=== PATIENT | male | born 1990 | race Caucasian/White ===

== ENCOUNTER 2017-07-12 02:16 | Emergency (ER) | payer OTHER ==
--- NOTE | 2017-07-12 02:39 | EDPHY ---
H & P Stated Complaint: right testicular pain Time Seen by Provider: 07/12/17 02:28 HPI/ROS: HPI The patient presents with intermittent right-sided testicular pain which started about 10 days ago and is getting progressively worse. When he tried to go to bed tonight the pain was 2/10, however, he was unable to sleep because of the pain it became progressively worse to the point where now it is a 7/10. The pain is dull, constant, not worse with ambulation. He has not had any edema of the area. He denies any penile discharge, hematuria. He has no prior history of similar. He does not have any recent injuries or direct trauma.. He is feeling somewhat anxious about this. REVIEW OF SYSTEMS Constitutional: No fever, no chills. Eyes: No discharge. ENT: No sore throat. Cardiovascular: No chest pain, no palpitations. Respiratory: No cough, no shortness of breath. Gastrointestinal: No abdominal pain, no vomiting. Genitourinary: No hematuria. Musculoskeletal: No back pain. Skin: No rashes. Neurological: No headache. PMHx: Healthy Soc Hx: Nonsmoker PHYSICAL General Appearance: Alert, no distress Eyes: Pupils equal and round no pallor or injection ENT, Mouth: Mucous membranes moist Respiratory: There are no retractions, lungs are clear to auscultation Cardiovascular: Regular rate and rhythm Gastrointestinal: Abdomen is soft and non-tender, no masses, bowel sounds normal : Right testicle is diffusely tender to palpation without any edema, scrotum appears normal with no overlying skin changes, there is no inguinal lymphadenopathy, there is normal cremasteric reflex, no inguinal hernia palpable Neurological: A&O, moves all extremities Skin: Warm and dry, no rashes Musculoskeletal: Neck is supple non tender Extremities: symmetrical, full range of motion Psychiatric: Patient is oriented X 3, there is no agitation Source: Patient Exam Limitations: No limitations - Personal History Current Tetanus Diphtheria and Acellular Pertussis (TDAP): Yes - Medical/Surgical History Hx Asthma: No Hx Chronic Respiratory Disease: No Hx Diabetes: No Hx Cardiac Disease: No Hx Renal Disease: No Hx Cirrhosis: No Hx Alcoholism: No Hx HIV/AIDS: No Hx Splenectomy or Spleen Trauma: No Other PMH: denies - Social History Smoking Status: Never smoked Constitutional: Initial Vital Signs Temperature (C) 37 C 07/12/17 02:19 Heart Rate 97 07/12/17 02:19 Respiratory Rate 20 07/12/17 02:19 Blood Pressure 126/85 H 07/12/17 02:19 O2 Sat (%) 95 07/12/17 02:19 O2 Delivery Mode Room Air Allergies/Adverse Reactions: No Known Allergies Allergy (Unverified 07/12/17 02:19) Home Medications: Medication Instructions Recorded NK [No Known Home Meds] 07/12/17 Medical Decision Making - Diagnostics Imaging Results: Testicular ultrasound demonstrates small midline varicocele, discussed with the radiologist incident response specialist. Differential Diagnosis: 27-year-old male presents with 10 days of intermittent and progressive right- sided testicular pain. There is no trauma. On exam, he is tender throughout the right testicle. Differential diagnosis includes epididymitis, orchitis, testicular torsion. In the emergency department, patient had UA performed which was unremarkable. Ultrasound demonstrated varicocele at the midline which could be the cause of his pain. I have discussed this with him. I have explained the benign nature of this diagnosis. I have given him a referral to Urology if he has ongoing pain. He is happy with this plan. Departure - Departure Disposition: Home, Routine, Self-Care Clinical Impression: Varicocele Condition: Good Instructions: Varicocele (ED), Testicle Pain (ED) Additional Instructions: If you continue to have testicular pain, I would encourage you to follow up with the urologist listed below. Referrals: Jamee Rodríguez MD [Medical Doctor] - As per Instructions
[2017-07-12 03:37] VITALS: BP 119/76
== END 2017-07-12 03:37 | disposition home or self-care (01) ==
DX: I86.1 Scrotal varices (principal)